=== PATIENT | female | born 1985 | race Caucasian/White ===

== ENCOUNTER 2018-05-17 16:02 | Inpatient (IN) | payer MEDICAID ==
[~2018-05-17] VITALS: Ht 172.7 cm; Wt 70.0 kg
[2018-05-17] MEDS ORDERED: dexamethasone sod phosphate 10mg/ml inj IV STA (16:08)
[2018-05-17] MEDS ORDERED: diphenhydrAMINE 50 mg/ml inj IV ONE (16:10)
[2018-05-17] MEDS ORDERED: normal saline 1000ML IV soln IV ONE (16:10)
[2018-05-17 16:59] LABS: BASOPHILS % (AUTO) 0.1 % (0-1); EOSINOPHILS % (AUTO) 0 % (0-6); HEMOGLOBIN 13.5 g/dl (12.0-16.0); LYMPHOCYTES # (AUTO) 0.6 X10'3 (1.1-4.8); LYMPHOCYTES % (AUTO) 3.3 % (21-51); MEAN CORPUSCULAR HEMOGLOBIN 29.6 PG (27.0-31.0); MEAN CORPUSCULAR HGB CONC 33.7 % (33.0-36.5); MEAN CORPUSCULAR VOLUME 87.8 FL (78-98); MEAN PLATELET VOLUME 8.2 FL (7.4-10.4); MONOCYTES # (AUTO) 0.4 X10'3 (0-0.9); MONOCYTES % (AUTO) 2.4 % (2-12); NEUTROPHILS # (AUTO) 15.7 X10'3 (1.8-7.7); NEUTROPHILS % (AUTO) 94.2 % (42-75); PLATELET COUNT 308 X10'3 (140-440); RED BLOOD COUNT 4.56 X10'6 (4.20-5.60); RED CELL DISTRIBUTION WIDTH 14.4 % (11.5-14.5); WHITE BLOOD COUNT 16.6 X10'3 (4.5-11.0)
[2018-05-17] MEDS ORDERED: famotidine/PF 10 mg/ml inj IV ONE (17:20)
[2018-05-17 17:23] LABS: ALANINE AMINOTRANSFERASE 241 U/L (12-78); ALBUMIN/GLOBULIN RATIO 1.2 (1.1-1.5); ALKALINE PHOSPHATASE 91 IU/L (46-116); ANION GAP 21 (8-16); ASPARTATE AMINO TRANSFERASE 474 U/L (10-37); BILIRUBIN,TOTAL 2.5 MG/DL (0.1-1.0); BLOOD UREA NITROGEN 47 MG/DL (7-18); BUN/CREATININE RATIO 16.8 (6.6-38.0); CALCIUM 9.5 MG/DL (8.5-10.1); CHLORIDE 90 MMOL/L (99-107); GLUCOSE 133 MG/DL (70-104); POTASSIUM 3.4 MMOL/L (3.5-5.1); SODIUM 132 MMOL/L (135-145); TOTAL CARBON DIOXIDE 21.4 MMOL/L (24-32); TOTAL PROTEIN 7.3 G/DL (6.4-8.2); eGFR 20 ML/MIN
[2018-05-17 17:35] LABS: BETA HCG,QUANTITATIVE < 1.0 mIU/ml; ETHANOL < 0.010 GM/DL (0.0-0.010)
[2018-05-17] MEDS ORDERED: CefTRIAXone 2gm/D5W 50ml 50 ML IV ONE (17:40)
[2018-05-17 17:45] LABS: CLARITY,URINE CLOUDY (Clear); COLOR,URINE YELLOW (Yellow); GLUCOSE, URINE NEGATIVE (Neg); KETONES,URINE 15 mg/dl (Neg); LEUKOCYTE ESTERASE ,URINE TRACE (Neg); NITRITES, URINE NEGATIVE (Neg); OCCULT BLOOD,URINE LARGE (Neg); PH,URINE 5.5 (4.8-8.0); PROTEIN,URINE 30 mg/dl (Neg); UA COLLECTION TYPE STRAIGHT CATH
[2018-05-17] MEDS ORDERED: LORazepam 2 mg/ml vial IV ONE (17:45)
[2018-05-17 17:47] LABS: RBC,URINE 0-2 /HPF (0-2); SQUAMOUS EPITHELIAL CELL,UR FEW /LPF (FEW); WBC,URINE 20-30 /HPF (0-4)
[2018-05-17 17:48] LABS: AMORPHOUS URATES 3+; BACTERIA,URINE 1+ /HPF (Neg)
[2018-05-17 17:54] LABS: URINE AMPHETAMINE SCREEN POSITIVE (Neg); URINE BARBITUATE SCREEN NEGATIVE (Neg); URINE BENZODIAZEPINES SCREEN POSITIVE (Neg); URINE CANNABINOID SCREEN NEGATIVE (Neg); URINE COCAINE SCREEN NEGATIVE (Neg); URINE METHADONE SCREEN NEGATIVE (Neg); URINE OPIATE SCREEN POSITIVE (Neg); URINE PHENCYCLIDINE SCREEN NEGATIVE (Neg)
[2018-05-17 18:03] LABS: HCG SERUM QL NEGATIVE
[2018-05-17 18:05] LABS: CREATINE KINASE 13406 U/L (26-192)
--- NOTE | 2018-05-17 18:08 | NUR ---
PT ON METH, WAREHOUSE RECEIVING SUPERVISOR AT BEDSIDE. PT'S RASH IS IMPROVING
[2018-05-17] MEDS ORDERED: magnesium hydroxide 30ml (MOM) UD suspension PO PRN (18:15)
[2018-05-17] MEDS ORDERED: mag hydrox/Alum hydrox/simeth 30ml oral suspension PO PRN (18:15)
[2018-05-17] MEDS ORDERED: ondansetron/PF 4mg/2ml inj IV PRN (18:15)
[2018-05-17] MEDS ORDERED: HYDROcodone/acetaminophen 5mg/325mg tablet PO PRN (18:15)
[2018-05-17 18:22] LABS: PLATELET ESTIMATE NORMAL; TOTAL CELLS COUNTED 100
[2018-05-17] MEDS: normal saline 1000ml 1,000 ML IV SCH (18:45)
--- NOTE | 2018-05-17 18:46 | NUR ---
upon entering room,heard sonorous breathing, patietn place on 5 lead and spo2, pupls pinpoint awakens enough to answer questions appropraittely about location, month, year, [place]
[2018-05-17] MEDS: heparin, porcine 5000 units/ml vial SQ SCH (20:36)
--- NOTE | 2018-05-17 21:50 | NUR ---
REPORT CALLED TO PCU BY MINAL ENGLE
[2018-05-17 23:00] VITALS: BP 110/72
--- NOTE | 2018-05-17 23:00 | NUR ---
Patient in room PCU 3017. I have received report from ER nurse and had the opportunity to ask questions and assume patient care.
[2018-05-18 03:00] VITALS: BP 98/60
[2018-05-18 04:46] LABS: BASOPHILS % (AUTO) 0 % (0-1); EOSINOPHILS % (AUTO) 0 % (0-6); HEMATOCRIT 39.7 % (35.0-45.0); HEMOGLOBIN 13.4 g/dl (12.0-16.0); LYMPHOCYTES # (AUTO) 0.4 X10'3 (1.1-4.8); LYMPHOCYTES % (AUTO) 3.2 % (21-51); MEAN CORPUSCULAR HEMOGLOBIN 29.9 PG (27.0-31.0); MEAN CORPUSCULAR HGB CONC 33.8 % (33.0-36.5); MEAN CORPUSCULAR VOLUME 88.7 FL (78-98); MEAN PLATELET VOLUME 8.1 FL (7.4-10.4); MONOCYTES # (AUTO) 0.3 X10'3 (0-0.9); MONOCYTES % (AUTO) 2.3 % (2-12); NEUTROPHILS # (AUTO) 11.3 X10'3 (1.8-7.7); NEUTROPHILS % (AUTO) 94.5 % (42-75); PLATELET COUNT 195 X10'3 (140-440); RED BLOOD COUNT 4.47 X10'6 (4.20-5.60); RED CELL DISTRIBUTION WIDTH 14.9 % (11.5-14.5)
[2018-05-18] MEDS: normal saline 1000ml 1,000 ML IV SCH (04:55)
[2018-05-18] MEDS: morphine 4 MG/ML inj SYRINge IV PRN ×3 (04:55→21:01)
[2018-05-18 05:08] LABS: ALANINE AMINOTRANSFERASE 182 U/L (12-78); ALBUMIN 2.8 G/DL (3.4-5.0); ALBUMIN/GLOBULIN RATIO 0.9 (1.1-1.5); ALKALINE PHOSPHATASE 58 IU/L (46-116); ANION GAP 14 (8-16); ASPARTATE AMINO TRANSFERASE 274 U/L (10-37); BILIRUBIN,TOTAL 1.4 MG/DL (0.1-1.0); BLOOD UREA NITROGEN 29 MG/DL (7-18); CALCIUM 7.9 MG/DL (8.5-10.1); CHLORIDE 99 MMOL/L (99-107); CREATININE 1.16 MG/DL (0.40-0.90); GLUCOSE 120 MG/DL (70-104); POTASSIUM 3.6 MMOL/L (3.5-5.1); SODIUM 134 MMOL/L (135-145); TOTAL CARBON DIOXIDE 20.6 MMOL/L (24-32); eGFR 55 ML/MIN
[2018-05-18 05:10] LABS: CREATINE KINASE 4609 U/L (26-192)
[2018-05-18 06:00] VITALS: BP 106/64
[2018-05-18 06:33] LABS: TOTAL CELLS COUNTED 100
[2018-05-18 06:34] LABS: PLATELET ESTIMATE NORMAL
[2018-05-18] MEDS ORDERED: NAPR-996 PO (08:08)
[2018-05-18] MEDS: heparin, porcine 5000 units/ml vial SQ SCH ×2 (09:47→21:03)
[2018-05-18] MEDS ORDERED: levoFLOXACIN-Levaquin 500mg/D5 100 ML IV SCH (10:25)
[2018-05-18] MEDS ORDERED: sincalide inj 1.4 MCG in normal saline 50ml IV soln 50 ML IV ONE (10:30)
[2018-05-18] MEDS ORDERED: ketoconazole 2% cream 15gm TP SCH (10:40)
[2018-05-18 11:00] VITALS: BP 106/67
[2018-05-18 12:18] LABS: HIV ANTIBODY 1&2 RAPID NON-REACTIVE (Neg)
[2018-05-18] MEDS: CefTRIAXone/D5W-Rocephin 1gm 50 ML IV SCH (14:29)
[2018-05-18] MEDS: DOXYCYCLINE 100MG CAPSULE PO SCH ×2 (14:29→21:03)
[2018-05-18 15:00] VITALS: BP 102/64
[2018-05-18] MEDS: ketoconazole (Nizoral) shampoo TP SCH (15:15)
[2018-05-18] MEDS ORDERED: ondansetron/PF 4mg/2ml inj IV PRN (15:50)
[2018-05-18] MEDS: acetaminophen 325mg tablet PO PRN (16:11)
[2018-05-18] MEDS: pantoprazole 40mg Tablet.DR PO SCH (16:12)
[2018-05-18 18:30] VITALS: BP 106/65
--- NOTE | 2018-05-18 19:35 | NUR ---
Patient in room [facility] 3017. I have received report from ONIEL HENNING and had the opportunity to ask questions and assume patient care. Addendum: 05/18/18 at 2025 by Candy Sainz RN Amended: Links added. Addendum: 05/18/18 at 2026 by Candy Sainz RN ABOVE NOTE: REPORT WAS RECEIVED AT 1835.
[2018-05-18] MEDS: Potassium Cl inj 20 MEQ in normal saline 1000ml 1,000 ML IV SCH (21:04)
[2018-05-18] MEDS ORDERED: pneumococcal 23-VAL P-sac vacc 25 mcg/0.5ml vial IMVAC ONE (22:50)
[2018-05-18 23:05] VITALS: BP 104/66
[2018-05-19] MEDS: morphine 4 MG/ML inj SYRINge IV PRN ×6 (01:22→23:02)
[2018-05-19 01:30] VITALS: BP 106/64
[2018-05-19] MEDS: Potassium Cl inj 20 MEQ in normal saline 1000ml 1,000 ML IV SCH ×2 (05:50→14:24)
[2018-05-19 05:56] LABS: BASOPHILS % (AUTO) 0 % (0-1); EOSINOPHILS % (AUTO) 0.1 % (0-6); HEMATOCRIT 32.2 % (35.0-45.0); HEMOGLOBIN 10.6 g/dl (12.0-16.0); LYMPHOCYTES # (AUTO) 0.3 X10'3 (1.1-4.8); LYMPHOCYTES % (AUTO) 3.4 % (21-51); MEAN CORPUSCULAR HEMOGLOBIN 29.4 PG (27.0-31.0); MEAN CORPUSCULAR VOLUME 89.1 FL (78-98); MEAN PLATELET VOLUME 8.3 FL (7.4-10.4); MONOCYTES # (AUTO) 0.3 X10'3 (0-0.9); MONOCYTES % (AUTO) 2.6 % (2-12); NEUTROPHILS # (AUTO) 9.2 X10'3 (1.8-7.7); NEUTROPHILS % (AUTO) 93.9 % (42-75); PLATELET COUNT 161 X10'3 (140-440); RED BLOOD COUNT 3.61 X10'6 (4.20-5.60); RED CELL DISTRIBUTION WIDTH 15.3 % (11.5-14.5); WHITE BLOOD COUNT 9.8 X10'3 (4.5-11.0)
[2018-05-19 06:00] VITALS: BP 105/67
[2018-05-19 06:09] LABS: ALANINE AMINOTRANSFERASE 137 U/L (12-78); ALBUMIN 2.3 G/DL (3.4-5.0); ALBUMIN/GLOBULIN RATIO 0.6 (1.1-1.5); ALKALINE PHOSPHATASE 59 IU/L (46-116); ANION GAP 8 (8-16); ASPARTATE AMINO TRANSFERASE 102 U/L (10-37); BILIRUBIN,TOTAL 0.7 MG/DL (0.1-1.0); BLOOD UREA NITROGEN 11 MG/DL (7-18); BUN/CREATININE RATIO 15.1 (6.6-38.0); CALCIUM 7.8 MG/DL (8.5-10.1); CHLORIDE 103 MMOL/L (99-107); CREATINE KINASE 830 U/L (26-192); CREATININE 0.73 MG/DL (0.40-0.90); GLUCOSE 118 MG/DL (70-104); POTASSIUM 3.6 MMOL/L (3.5-5.1); SODIUM 137 MMOL/L (135-145); TOTAL CARBON DIOXIDE 25.6 MMOL/L (24-32); TOTAL PROTEIN 5.9 G/DL (6.4-8.2); eGFR > 90 ML/MIN
--- NOTE | 2018-05-19 06:30 | NUR ---
Problems reprioritized. Patient report given, questions answered & plan of care reviewed with ONIEL ROSADO. Addendum: 05/19/18 at 0647 by Candy Sainz RN Amended: Links added.
--- NOTE | 2018-05-19 06:31 | NUR ---
Patient in room PCU 3017. I have received report from Olga ENGLE and had the opportunity to ask questions and assume patient care.
[2018-05-19] MEDS: CefTRIAXone/D5W-Rocephin 1gm 50 ML IV SCH (07:25)
[2018-05-19] MEDS: DOXYCYCLINE 100MG CAPSULE PO SCH (07:25)
[2018-05-19] MEDS: pantoprazole 40mg Tablet.DR PO SCH (07:25)
[2018-05-19] MEDS: heparin, porcine 5000 units/ml vial SQ SCH (07:26)
[2018-05-19] MEDS: ketoconazole (Nizoral) shampoo TP SCH ×2 (07:26→17:35)
[2018-05-19 08:21] LABS: RPR Non Reactive (Non Reactive)
[2018-05-19] MEDS ORDERED: pneumococcal 23-VAL P-sac vacc 25 mcg/0.5ml vial IMVAC ONE (10:00)
[2018-05-19] MEDS ORDERED: FLU VACC QUAD 2018(5 YR UP)/PF 60 MCG/0.5 ML SYRINGE IM ONE (10:00)
[2018-05-19] MEDS: levoFLOXACIN-Levaquin 500mg/D5 100 ML IV SCH (10:25)
[2018-05-19 11:27] LABS: BANDS% (MANUAL) 9.5 % (0-10); LYMPHOCYTES % (MANUAL) 2.5 % (21-51); PLATELET ESTIMATE NORMAL; TOTAL CELLS COUNTED 200
--- NOTE | 2018-05-19 12:04 | NUR ---
Pt transferred off unit for xray via wheelchair and in stable condition.
--- NOTE | 2018-05-19 12:27 | NUR ---
Pt returned to unit at this time. Returned to bed, pt stable at this time.
[2018-05-19 12:30] VITALS: BP 121/78
--- NOTE | 2018-05-19 13:20 | NUR ---
PAGER ID: [phone] MESSAGE: Neris ENLGE [id number] Heather Santo wanted to let you know that the pt. is back from x-ray and she also had blood in her urine and complained of painful urination and a temp of 100.4.
[2018-05-19] MEDS: acetaminophen 325mg tablet PO PRN (14:28)
[2018-05-19 15:00] VITALS: BP 118/75
[2018-05-19] MEDS ORDERED: ringers solution, lacted 1,000 ML IV ONE (17:32)
[2018-05-19] MEDS: HYDROcodone/acetaminophen 10/325mg tab PO PRN ×2 (17:35→21:42)
--- NOTE | 2018-05-19 18:37 | NUR ---
Spoke with .s chief talent officer Lorenzo Feliz who states that she will be going back to [facility] for using drugs and violating her parole. He asked that we call him before she is discharged because he has to pick her up. If you call and he does not answer leave a message and she can go home with family and he will pick her up at her place of residence.
--- NOTE | 2018-05-19 18:41 | NUR ---
Lorenoz Villafanas,pt.'s police officer crime prevention, number is [phone]
--- NOTE | 2018-05-19 18:48 | NUR ---
Received report from Neris ENGLE and Brittany ENGLE. Assumed patient care. Patient is awake and alert on room air. Mother is at her bedside. In no apparent distress. Call light and items of frequent use within reach. Will continue to monitor for changes.
[2018-05-19 19:00] VITALS: BP 118/75
[2018-05-19] MEDS: diatr meglu/diatrizoate 30ml oral sol.-(3 dose) bottle PO SCH (21:42)
[2018-05-19 23:00] VITALS: BP 112/72
[2018-05-20] MEDS: HYDROcodone/acetaminophen 10/325mg tab PO PRN ×4 (01:44→20:29)
[2018-05-20] MEDS: Potassium Cl inj 20 MEQ in normal saline 1000ml 1,000 ML IV SCH ×2 (01:44→10:36)
[2018-05-20 03:00] VITALS: BP 101/73
[2018-05-20] MEDS: morphine 4 MG/ML inj SYRINge IV PRN ×5 (03:09→22:16)
[2018-05-20 06:00] VITALS: BP 103/77
[2018-05-20] MEDS ORDERED: famotidine 20mg tablet PO ONE (06:00)
[2018-05-20 06:06] LABS: BASOPHILS % (AUTO) 0.2 % (0-1); EOSINOPHILS # (AUTO) 0.3 X10'3 (0-0.9); EOSINOPHILS % (AUTO) 3.5 % (0-6); HEMATOCRIT 28.4 % (35.0-45.0); HEMOGLOBIN 9.6 g/dl (12.0-16.0); LYMPHOCYTES # (AUTO) 0.8 X10'3 (1.1-4.8); LYMPHOCYTES % (AUTO) 9.2 % (21-51); MEAN CORPUSCULAR HEMOGLOBIN 29.9 PG (27.0-31.0); MEAN CORPUSCULAR HGB CONC 33.7 % (33.0-36.5); MEAN CORPUSCULAR VOLUME 88.6 FL (78-98); MEAN PLATELET VOLUME 7.9 FL (7.4-10.4); MONOCYTES # (AUTO) 0.3 X10'3 (0-0.9); MONOCYTES % (AUTO) 3.9 % (2-12); NEUTROPHILS # (AUTO) 6.9 X10'3 (1.8-7.7); NEUTROPHILS % (AUTO) 83.2 % (42-75); PLATELET COUNT 133 X10'3 (140-440); WHITE BLOOD COUNT 8.3 X10'3 (4.5-11.0)
--- NOTE | 2018-05-20 06:10 | NUR ---
Reported off to Neris ENGLE and Brittany ENGLE. Patient is awake and alert on room air. In no apparent distress. Call light and items of frequent use within reach. Call light and items of frequent use within reach.
[2018-05-20 06:18] LABS: ALANINE AMINOTRANSFERASE 102 U/L (12-78); ALBUMIN 1.9 G/DL (3.4-5.0); ALBUMIN/GLOBULIN RATIO 0.5 (1.1-1.5); ALKALINE PHOSPHATASE 60 IU/L (46-116); ANION GAP 8 (8-16); ASPARTATE AMINO TRANSFERASE 50 U/L (10-37); BILIRUBIN,TOTAL 0.5 MG/DL (0.1-1.0); BLOOD UREA NITROGEN 8 MG/DL (7-18); BUN/CREATININE RATIO 11.8 (6.6-38.0); CALCIUM 7.4 MG/DL (8.5-10.1); CHLORIDE 106 MMOL/L (99-107); CREATINE KINASE 295 U/L (26-192); CREATININE 0.68 MG/DL (0.40-0.90); GLUCOSE 95 MG/DL (70-104); POTASSIUM 3.5 MMOL/L (3.5-5.1); SODIUM 138 MMOL/L (135-145); TOTAL CARBON DIOXIDE 23.8 MMOL/L (24-32); TOTAL PROTEIN 5.5 G/DL (6.4-8.2); eGFR > 90 ML/MIN
[2018-05-20 07:08] LABS: ANISOCYTOSIS 1+; PLATELET ESTIMATE DECREASED; POLYCHROMASIA FEW; SCHISTOCYTES FEW; TOTAL CELLS COUNTED 100
[2018-05-20] MEDS: pantoprazole 40mg Tablet.DR PO SCH (07:16)
[2018-05-20] MEDS: levoFLOXACIN-Levaquin 500mg/D5 100 ML IV SCH (07:16)
[2018-05-20] MEDS: diatr meglu/diatrizoate 30ml oral sol.-(3 dose) bottle PO SCH ×2 (07:17→10:13)
[2018-05-20] MEDS ORDERED: iohexol 300mg/ml 100ml inj. ONE (10:12)
--- NOTE | 2018-05-20 10:21 | NUR ---
Pt transported to CT at this time via wheelchair in stable condition.
--- NOTE | 2018-05-20 10:37 | NUR ---
Pt. back from procedure and in stable condition.
[2018-05-20 11:00] VITALS: BP 106/67
[2018-05-20 15:00] VITALS: BP 113/76
--- NOTE | 2018-05-20 18:10 | NUR ---
Patient in room PCU 3017. I have received report from ONIEL Cordon and had the opportunity to ask questions and assume patient care.
[2018-05-20 19:00] VITALS: BP 113/71
[2018-05-20 23:00] VITALS: BP 106/67
[2018-05-21] MEDS: Potassium Cl inj 20 MEQ in normal saline 1000ml 1,000 ML IV SCH ×3 (01:43→15:06)
[2018-05-21 03:00] VITALS: BP 109/72
[2018-05-21] MEDS: morphine 4 MG/ML inj SYRINge IV PRN ×4 (04:36→20:32)
--- NOTE | 2018-05-21 06:06 | NUR ---
Problems reprioritized. Patient report given, questions answered & plan of care reviewed with ONIEL Clarke.
--- NOTE | 2018-05-21 06:09 | NUR ---
Patient in room PCU 3017. I have received report from ONIEL FUNES and had the opportunity to ask questions and assume patient care.
[2018-05-21 06:16] LABS: BASOPHILS % (AUTO) 0.1 % (0-1); EOSINOPHILS # (AUTO) 0.4 X10'3 (0-0.9); EOSINOPHILS % (AUTO) 4.2 % (0-6); HEMATOCRIT 30.3 % (35.0-45.0); HEMOGLOBIN 10.2 g/dl (12.0-16.0); LYMPHOCYTES # (AUTO) 1.2 X10'3 (1.1-4.8); LYMPHOCYTES % (AUTO) 12.5 % (21-51); MEAN CORPUSCULAR HEMOGLOBIN 29.7 PG (27.0-31.0); MEAN CORPUSCULAR HGB CONC 33.7 % (33.0-36.5); MEAN CORPUSCULAR VOLUME 88.2 FL (78-98); MEAN PLATELET VOLUME 8.3 FL (7.4-10.4); MONOCYTES # (AUTO) 0.4 X10'3 (0-0.9); MONOCYTES % (AUTO) 4.4 % (2-12); NEUTROPHILS # (AUTO) 7.7 X10'3 (1.8-7.7); NEUTROPHILS % (AUTO) 78.8 % (42-75); PLATELET COUNT 168 X10'3 (140-440); RED BLOOD COUNT 3.44 X10'6 (4.20-5.60); RED CELL DISTRIBUTION WIDTH 16.1 % (11.5-14.5); WHITE BLOOD COUNT 9.7 X10'3 (4.5-11.0)
[2018-05-21 06:33] LABS: ALANINE AMINOTRANSFERASE 86 U/L (12-78); ALBUMIN 1.9 G/DL (3.4-5.0); ALBUMIN/GLOBULIN RATIO 0.5 (1.1-1.5); ALKALINE PHOSPHATASE 69 IU/L (46-116); ANION GAP 10 (8-16); ASPARTATE AMINO TRANSFERASE 34 U/L (10-37); BILIRUBIN,TOTAL 0.5 MG/DL (0.1-1.0); BLOOD UREA NITROGEN 6 MG/DL (7-18); BUN/CREATININE RATIO 8.5 (6.6-38.0); CALCIUM 7.6 MG/DL (8.5-10.1); CHLORIDE 104 MMOL/L (99-107); CREATINE KINASE 155 U/L (26-192); CREATININE 0.71 MG/DL (0.40-0.90); GLUCOSE 113 MG/DL (70-104); POTASSIUM 3.7 MMOL/L (3.5-5.1); SODIUM 138 MMOL/L (135-145); TOTAL CARBON DIOXIDE 24.2 MMOL/L (24-32); TOTAL PROTEIN 5.7 G/DL (6.4-8.2); eGFR > 90 ML/MIN
[2018-05-21 06:59] VITALS: BP 120/80
[2018-05-21] MEDS: HYDROcodone/acetaminophen 10/325mg tab PO PRN ×2 (07:41→18:48)
[2018-05-21] MEDS: ketoconazole (Nizoral) shampoo TP SCH (07:42)
[2018-05-21] MEDS: pantoprazole 40mg Tablet.DR PO SCH (07:42)
[2018-05-21] MEDS ORDERED: FLU VACC QUAD 2018(5 YR UP)/PF 60 MCG/0.5 ML SYRINGE IM ONE (10:00)
[2018-05-21] MEDS ORDERED: pneumococcal 23-VAL P-sac vacc 25 mcg/0.5ml vial IMVAC ONE (10:00)
[2018-05-21] MEDS: levoFLOXACIN 500mg tablet PO SCH (10:45)
[2018-05-21 11:00] VITALS: BP 123/74
[2018-05-21] MEDS ORDERED: iohexol 300mg/ml 100ml inj. ONE (12:31)
--- NOTE | 2018-05-21 13:09 | NUR ---
PATIENT DOWN TO CT
[2018-05-21 15:58] VITALS: BP 117/72
[2018-05-21] MEDS: clindamycin 300mg/D5W 50mL 50 ML IV SCH ×2 (17:31→20:00)
[2018-05-21 18:00] VITALS: BP 121/73
--- NOTE | 2018-05-21 18:40 | NUR ---
Patient in room PCU 3017. I have received report from Tricia ENGLE and had the opportunity to ask questions and assume patient care.
--- NOTE | 2018-05-21 18:42 | NUR ---
Problems reprioritized. Patient report given, questions answered & plan of care reviewed with ONIEL Juan.
[2018-05-21] MEDS: lactobacillus rhamnosus 10,000 MMU CELLS/CAPSULE PO SCH (20:32)
[2018-05-21] MEDS: diphenhydrAMINE 25mg capsule PO PRN (21:45)
[2018-05-21 22:00] VITALS: BP 110/67
[2018-05-22] MEDS: morphine 4 MG/ML inj SYRINge IV PRN ×4 (01:58→16:56)
[2018-05-22] MEDS: clindamycin 300mg/D5W 50mL 50 ML IV SCH ×4 (01:58→19:31)
[2018-05-22 02:00] VITALS: BP 117/73
[2018-05-22] MEDS: Potassium Cl inj 20 MEQ in normal saline 1000ml 1,000 ML IV SCH ×2 (03:09→13:19)
[2018-05-22 05:36] LABS: BASOPHILS % (AUTO) 0.3 % (0-1); EOSINOPHILS # (AUTO) 0.4 X10'3 (0-0.9); EOSINOPHILS % (AUTO) 4.5 % (0-6); HEMATOCRIT 31.7 % (35.0-45.0); HEMOGLOBIN 10.6 g/dl (12.0-16.0); LYMPHOCYTES % (AUTO) 21.4 % (21-51); MEAN CORPUSCULAR HEMOGLOBIN 29.8 PG (27.0-31.0); MEAN CORPUSCULAR HGB CONC 33.6 % (33.0-36.5); MEAN CORPUSCULAR VOLUME 88.5 FL (78-98); MEAN PLATELET VOLUME 7.5 FL (7.4-10.4); MONOCYTES # (AUTO) 0.8 X10'3 (0-0.9); MONOCYTES % (AUTO) 8.8 % (2-12); NEUTROPHILS # (AUTO) 6.2 X10'3 (1.8-7.7); PLATELET COUNT 186 X10'3 (140-440); RED BLOOD COUNT 3.58 X10'6 (4.20-5.60); RED CELL DISTRIBUTION WIDTH 16.4 % (11.5-14.5); WHITE BLOOD COUNT 9.5 X10'3 (4.5-11.0)
[2018-05-22 06:04] LABS: ALANINE AMINOTRANSFERASE 74 U/L (12-78); ALBUMIN 1.8 G/DL (3.4-5.0); ALBUMIN/GLOBULIN RATIO 0.4 (1.1-1.5); ALKALINE PHOSPHATASE 76 IU/L (46-116); ANION GAP 8 (8-16); ASPARTATE AMINO TRANSFERASE 26 U/L (10-37); BILIRUBIN,TOTAL 0.4 MG/DL (0.1-1.0); BLOOD UREA NITROGEN 6 MG/DL (7-18); BUN/CREATININE RATIO 10.2 (6.6-38.0); CALCIUM 7.7 MG/DL (8.5-10.1); CHLORIDE 106 MMOL/L (99-107); CREATINE KINASE 77 U/L (26-192); CREATININE 0.59 MG/DL (0.40-0.90); GLUCOSE 86 MG/DL (70-104); POTASSIUM 3.9 MMOL/L (3.5-5.1); SODIUM 140 MMOL/L (135-145); TOTAL CARBON DIOXIDE 26.1 MMOL/L (24-32); TOTAL PROTEIN 5.9 G/DL (6.4-8.2); eGFR > 90 ML/MIN
--- NOTE | 2018-05-22 06:18 | NUR ---
Problems reprioritized. Patient report given, questions answered & plan of care reviewed with Fanny ENGLE.
--- NOTE | 2018-05-22 06:21 | NUR ---
Patient in room PCU 3017. I have received report from ONIEL Mena and had the opportunity to ask questions and assume patient care.
[2018-05-22] MEDS: pantoprazole 40mg Tablet.DR PO SCH (06:47)
[2018-05-22 07:00] VITALS: BP 122/86
[2018-05-22] MEDS ORDERED: pneumococcal 23-VAL P-sac vacc 25 mcg/0.5ml vial IMVAC ONE (09:00)
[2018-05-22] MEDS: lactobacillus rhamnosus 10,000 MMU CELLS/CAPSULE PO SCH ×2 (09:01→19:30)
[2018-05-22] MEDS: ketoconazole (Nizoral) shampoo TP SCH (09:10)
[2018-05-22] MEDS: HYDROcodone/acetaminophen 10/325mg tab PO PRN ×2 (09:45→19:30)
[2018-05-22] MEDS ORDERED: FLU VACC QUAD 2018(5 YR UP)/PF 60 MCG/0.5 ML SYRINGE IM ONE ×2 (10:00→13:00)
[2018-05-22 11:00] VITALS: BP 111/71
[2018-05-22] MEDS: levoFLOXACIN 500mg tablet PO SCH (11:48)
[2018-05-22 15:00] VITALS: BP 113/71
[2018-05-22 18:00] VITALS: BP 109/68
--- NOTE | 2018-05-22 18:30 | NUR ---
Patient in room PCU 3017. I have received report from ONIEL FUNES and had the opportunity to ask questions and assume patient care.
--- NOTE | 2018-05-22 18:32 | NUR ---
Problems reprioritized. Patient report given, questions answered & plan of care reviewed with ONIEL Smart.
[2018-05-22] MEDS: diphenhydrAMINE 25mg capsule PO PRN (19:30)
[2018-05-22 22:00] VITALS: BP 110/71
--- NOTE | 2018-05-22 22:35 | NUR ---
NEW IV ATTEMPTED BY 3 DIFFERENT RN'S BUT NOT ABLE TO START. I'LL KEEP THE OLD ONE FOR NOW.
[2018-05-23] MEDS: HYDROcodone/acetaminophen 10/325mg tab PO PRN ×2 (00:18→07:52)
[2018-05-23] MEDS: Potassium Cl inj 20 MEQ in normal saline 1000ml 1,000 ML IV SCH ×2 (01:20→09:18)
[2018-05-23] MEDS: clindamycin 300mg/D5W 50mL 50 ML IV SCH ×3 (01:20→14:00)
[2018-05-23 02:00] VITALS: BP 112/76
--- NOTE | 2018-05-23 06:20 | NUR ---
Problems reprioritized. Patient report given, questions answered & plan of care reviewed with ONIEL RENEE.
[2018-05-23 06:29] LABS: CREATINE KINASE 47 U/L (26-192)
--- NOTE | 2018-05-23 06:35 | NUR ---
Patient in room PCU 3017. I have received report from SALVATORE ENGLE and had the opportunity to ask questions and assume patient care.
[2018-05-23 07:01] VITALS: BP 123/80
[2018-05-23] MEDS: lactobacillus rhamnosus 10,000 MMU CELLS/CAPSULE PO SCH (07:51)
[2018-05-23] MEDS: pantoprazole 40mg Tablet.DR PO SCH (07:51)
[2018-05-23] MEDS: ketoconazole (Nizoral) shampoo TP SCH (07:54)
[2018-05-23] MEDS ORDERED: CLIN300C3 PO (10:35)
[2018-05-23] MEDS ORDERED: KETO120S3 TP (10:35)
[2018-05-23] MEDS ORDERED: LEVO500T89 PO (10:35)
[2018-05-23 11:00] VITALS: BP 115/74
[2018-05-23] MEDS: levoFLOXACIN 500mg tablet PO SCH (11:16)
--- NOTE | 2018-05-23 14:00 | NUR ---
PATIENT DISCHARGED INTO THE CUSTODY OF [facility], PATIENT LEFT WITH HER BELONGINGS EXCLUDING SMALL BAG WITH CLOTHING IN THAT WAS FOUND AFTER DISCHARGE. PATIENT EXPRESSED VERBAL UNDERSTANDING OF DISCHARGE TEACHING AT THIS TIME. PATIENT IV WAS TAKEN OUT AT THIS TIME, SITE SHOWED MINIMAL BLEEDING AND CANULA WAS WHOLE AND INTACT UPON INSPECTION. PATIENT WAS TAKEN FROM [facility] DIRECTLY TO [facility].
== END 2018-05-23 13:55 | disposition home or self-care (01) | DRG 383 ==
LOC: ER 16:03 → ED HOLD 18:12 → PCU 3S 22:15
PROVIDERS: ADMIT Internal Medicine; ATTEND Internal Medicine
PROC: CF141ZZ Planar Nuclear Medicine Imaging of Gallbladder using Technetium 99m (Tc-99m) (ICD-10-PCS; 2018-05-18)
PROC: BW211ZZ Computerized Tomography (CT Scan) of Abdomen and Pelvis using Low Osmolar Contrast (ICD-10-PCS; 2018-05-20)
PROC: BQ2S1ZZ Computerized Tomography (CT Scan) of Left Lower Extremity using Low Osmolar Contrast (ICD-10-PCS; 2018-05-21)
PROC: 3E02340 Introduction of Influenza Vaccine into Muscle, Percutaneous Approach (ICD-10-PCS; principal; 2018-05-22)
PROC: 3E0234Z Introduction of Serum, Toxoid and Vaccine into Muscle, Percutaneous Approach (ICD-10-PCS; 2018-05-22)
DX: L03.811 Cellulitis of head [any part, except face] (principal); N17.9 Acute kidney failure, unspecified; M62.82 Rhabdomyolysis; R13.10 Dysphagia, unspecified; N39.0 Urinary tract infection, site not specified; K75.9 Inflammatory liver disease, unspecified; D72.829 Elevated white blood cell count, unspecified; E86.0 Dehydration; F15.129 Other stimulant abuse with intoxication, unspecified; K80.20 Calculus of gallbladder without cholecystitis without obstruction; L29.9 Pruritus, unspecified; F14.90 Cocaine use, unspecified, uncomplicated; M25.552 Pain in left hip; M25.562 Pain in left knee; L21.9 Seborrheic dermatitis, unspecified; L65.9 Nonscarring hair loss, unspecified; E87.6 Hypokalemia; N93.9 Abnormal uterine and vaginal bleeding, unspecified; W18.39XA Other fall on same level, initial encounter; M25.572 Pain in left ankle and joints of left foot; M79.89 Other specified soft tissue disorders; R21 Rash and other nonspecific skin eruption; Z23 Encounter for immunization; Z88.0 Allergy status to penicillin; Z59.0 Homelessness; Z87.11 Personal history of peptic ulcer disease; Z79.899 Other long term (current) drug therapy; Y93.89 Activity, other specified; Y92.098 Other place in other non-institutional residence as the place of occurrence of the external cause; Y99.8 Other external cause status
CPT/HCPCS: 36415; 71045; 73502; 73564; 73701; 74177; 76700; 78226; 80053; 80305; 80320; 81001; 82550; 83605; 84443; 84702; 84703; 85025; 86592; 86703; 87040; 87070; 90732; 93306; 96365; 96375; 97116; 97161; 97530; 99285; A9537; G0378; J0696; J1100; J1200; J1644; J1956; J2060; J2270; J2405; J3480; J3490; J7030; J7120; Q0163; Q2037; Q9963; Q9967; X5958